=== PATIENT | female | born 1980 | race Two or more races ===

== ENCOUNTER 2023-02-11 19:33 | Emergency (ER) | payer OTHER ==
[~2023-02-11] VITALS: Ht 165.1 cm; Wt 78.9 kg
[2023-02-11] MEDS ORDERED: METROPOLOL (20:18)
[2023-02-11] MEDS ORDERED: DICLOFENAC SODI75 MG PO (21:18)
[2023-02-11] MEDS ORDERED: NORFLEX100MG PO (21:18)
== END 2023-02-11 21:31 | disposition home or self-care (01) ==
LOC: ER 19:33
DX: M12.569 Traumatic arthropathy, unspecified knee (principal)